=== PATIENT | female | born 1950 | race Two or more races ===

== ENCOUNTER 2019-09-29 21:04 | Emergency (ER) | payer OTHER ==
[2019-09-29] MEDS ORDERED: Sodium Chloride 0.9% 10 ML Syringe FLUSH PRN (21:31)
--- NOTE | 2019-09-29 21:55 | EDM.PDOC ---
ED HPI GENERAL MEDICAL PROBLEM - General Chief Complaint: Gastrointestinal Problem Stated Complaint: BLOOD IN THE TOILET Time Seen by Provider: 09/29/19 21:40 Source of Information: Reports: Patient History Limitations: Reports: Other (limited old records available) - History of Present Illness INITIAL COMMENTS - FREE TEXT/NARRATIVE: 69 yo female [place] patient presents after passage of blood per rectum this evening that was painless. Has no hx of the same. No abdominal pain or vomiting. Is not on any anticoagulants other than ASA. Not dizzy with standing now. Had colonoscopy and believes that there was no problems identified(within the past 5 yrs). Passing more gas than usual. Called the [facility] and was told to come to our ER. Apparently, had a little bit of bleeding starting as early as last evening. 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 [Unable to Verify Home Med List] 09/29/19 [History] Past Medical History - Past Surgical History Musculoskeletal Surgical History: Reports: Knee Replacement Social & Family History - Tobacco Use Smoking Status *Q: Never Smoker ED ROS GENERAL - Review of Systems Review Of Systems: See Below Constitutional: Reports: No Symptoms HEENT: Reports: No Symptoms Respiratory: Reports: No Symptoms Cardiovascular: Reports: No Symptoms Endocrine: Reports: No Symptoms GI/Abdominal: Reports: Abdominal Pain (some mild cramps), Bloody Stool, Diarrhea (mostly blood), Flatus. Denies: Black Stool, Distension, Hematemesis, Nausea, Vomiting : Reports: No Symptoms Musculoskeletal: Reports: No Symptoms Skin: Reports: No Symptoms Neurological: Reports: No Symptoms Psychiatric: Reports: No Symptoms ED EXAM, GI/ABD - Physical Exam Exam: See Below Exam Limited By: No Limitations General Appearance: Alert, WD/WN, No Apparent Distress, Obese Eyes: Bilateral: Normal Appearance Ears: Normal External Exam, Normal Canal, Hearing Grossly Normal, Normal TMs Nose: Normal Inspection, No Blood Throat/Mouth: Normal Inspection, Normal Lips, Normal Oropharynx, Normal Voice, No Airway Compromise Head: Atraumatic, Normocephalic Neck: Normal Inspection Respiratory/Chest: No Respiratory Distress, Lungs Clear, Normal Breath Sounds, No Accessory Muscle Use Cardiovascular: Regular Rate, Rhythm, No Edema, Tachycardia GI/Abdominal Exam: Normal Bowel Sounds, Soft, Non-Tender, No Distention, Abnormal Bowel Sounds (increased). No: Distended, Guarding, Rigid, Rebound, Tender, Hernia Back Exam: Normal Inspection. No: CVA Tenderness (R), CVA Tenderness (L) Extremities: Normal Inspection, Normal Range of Motion, Non-Tender, No Pedal Edema Neurological: Alert, Oriented, CN II-XII Intact, Normal Cognition, No Motor/ Sensory Deficits Psychiatric: Normal Affect, Normal Mood Skin Exam: Warm, Dry, Intact, Normal Color, No Rash Course - Vital Signs Text/Narrative:: Discussed with the [facility] @ 2210h Is declining the offer of an ambulance. Sons to drive her to [facility]. Will saline lock her IV. Last Recorded V/S: Last Vital Signs Temp 35.9 C 09/29/19 21:40 Pulse 111 H 09/29/19 21:40 Resp 18 09/29/19 21:40 BP 167/113 H 09/29/19 21:40 Pulse Ox 97 09/29/19 21:40 - Orders/Labs/Meds Orders: Active Orders 24 hr Category Date Time Status PATIENT RETYPE [BBK] Stat Lab 09/29/19 21:31 Results TYPE AND SCREEN [BBK] Stat Lab 09/29/19 21:31 Results Lactated Ringers [Ringers, Lactated] 1,000 ml Med 09/29/19 22:15 Active IV ASDIRECTED Sodium Chloride 0.9% [Saline Flush] Med 09/29/19 21:31 Active 10 ml FLUSH ASDIRECTED PRN Saline Lock Insert [OM.PC] Routine Oth 09/29/19 21:31 Ordered Medication Orders Lactated Ringer's (Ringers, Lactated) 1,000 mls @ 250 mls/hr IV ASDIRECTED CHRISTIAN Last Admin: 09/29/19 22:52 Dose: 250 mls/hr Sodium Chloride (Saline Flush) 10 ml FLUSH ASDIRECTED PRN PRN Reason: Keep Vein Open Last Admin: 09/29/19 22:52 Dose: 10 ml Labs: Laboratory Tests 09/29/19 09/29/19 09/29/19 Range/Units 21:31 21:46 21:46 WBC 7.9 (4.5-11.0) K/uL RBC 4.40 (3.30-5.50) M/uL Hgb 12.6 (12.0-15.0) g/dL Hct 39.7 (36.0-48.0) % MCV 90 (80-98) fL MCH 29 (27-31) pg MCHC 32 (32-36) % Plt Count 354 (150-400) K/uL Sodium 141 (140-148) mmol/L Potassium 4.3 (3.6-5.2) mmol/L Chloride 108 (100-108) mmol/L Carbon Dioxide 23 (21-32) mmol/L Anion Gap 10.2 (5.0-14.0) mmol/L BUN 25 H (7-18) mg/dL Creatinine 1.3 H (0.6-1.0) mg/dL Est Cr Clr Drug Dosing 35.27 mL/min Estimated GFR (MDRD) 41 L (>60) Glucose 108 H (74-106) mg/dL Calcium 9.1 (8.5-10.1) mg/dL Blood Type O POSITIVE Gel Antibody Screen Negative Meds: Medications Generic Name Dose Route Start Last Admin Trade Name Judy PRN Reason Stop Dose Admin Lactated Ringer's 1,000 mls @ 250 mls/hr 09/29/19 22:15 09/29/19 22:52 Ringers, Lactated IV 250 mls/hr ASDIRECTED CHRISTIAN Administration Sodium Chloride 10 ml 09/29/19 21:31 09/29/19 22:52 Saline Flush FLUSH 10 ml ASDIRECTED PRN Administration Keep Vein Open Discontinued Medications Generic Name Dose Route Start Last Admin Trade Name Freq PRN Reason Stop Dose Admin Clonidine HCl 0.2 mg 09/29/19 22:12 Catapres PO 09/29/19 22:13 ONETIME ONE Pantoprazole Sodium 40 mg 09/29/19 23:03 09/29/19 23:17 Protonix Iv IVPUSH 09/29/19 23:04 40 mg ONETIME ONE Administration - Radiology Interpretation Free Text/Narrative:: 2 view abd X-ray- IMPRESSION: 1. Unremarkable appearance of the visualized abdomen. Dictated by Warner Demarco MD @ 09/29/2019 10:47:05 PM Dictated by: Warner Demarco MD @ 09/29/2019 22:47:08 Departure - Departure Time of Disposition: 23:45 Disposition: DC/Tfer to Acute Hospital 02 Condition: Fair Clinical Impression: Rectal bleeding, Diverticular hemorrhage - Discharge Information *PRESCRIPTION DRUG MONITORING PROGRAM REVIEWED*: No *COPY OF PRESCRIPTION DRUG MONITORING REPORT IN PATIENT OFE: No Instructions: Rectal Bleeding, [id number] Referrals: PCP,None [Primary Care Provider] - Forms: ED Department Discharge Sepsis Event Note - Evaluation Sepsis Screening Result: No Definite Risk - Focused Exam Vital Signs: Vital Signs Temp Pulse Resp BP Pulse Ox 09/29/19 21:40 35.9 C 111 H 18 167/113 H 97 09/29/19 21:17 35.9 C 111 H 18 167/113 H 97 Date Exam was Performed: 09/29/19 Time Exam was Performed: 23:36 - My Orders Last 24 Hours: My Active Orders 09/29/19 21:31 PATIENT RETYPE [BBK] Stat TYPE AND SCREEN [BBK] Stat Sodium Chloride 0.9% [Saline Flush] 10 ml FLUSH ASDIRECTED PRN Saline Lock Insert [OM.PC] Routine 09/29/19 22:15 Lactated Ringers [Ringers, Lactated] 1,000 ml IV ASDIRECTED - Assessment/Plan Last 24 Hours: My Active Orders 09/29/19 21:31 PATIENT RETYPE [BBK] Stat TYPE AND SCREEN [BBK] Stat Sodium Chloride 0.9% [Saline Flush] 10 ml FLUSH ASDIRECTED PRN Saline Lock Insert [OM.PC] Routine 09/29/19 22:15 Lactated Ringers [Ringers, Lactated] 1,000 ml IV ASDIRECTED
[2019-09-29] MEDS ORDERED: cloNIDine 0.1 MG Tab PO ONE (22:12)
[2019-09-29] MEDS ORDERED: Lactated Ringers 1,000 ML IV SCH (22:15)
--- NOTE | 2019-09-29 22:49 | CRLCR ---
INDICATION: Rectal bleeding TECHNIQUE: Abdomen/Pelvis radiograph 4 views COMPARISON: None FINDINGS: Severe degradation of image quality noted due to body habitus. Bowel: Nonspecific small scattered air-fluid levels are present throughout the abdomen. Mild gaseous distention of the colon is seen. Soft tissue: No evidence of pneumoperitoneum present. No suspicious calcifications noted. Bone: Unremarkable for age. IMPRESSION: 1. Unremarkable appearance of the visualized abdomen. Dictated by Warner Demarco MD @ 09/29/2019 10:47:05 PM Dictated by: Warner Demarco MD @ 09/29/2019 22:47:08 (Electronically Signed)
[2019-09-29] MEDS ORDERED: Pantoprazole 40 MG Vial IVPUSH ONE (23:03)
== END 2019-09-29 23:55 ==
LOC: JP.ED 21:04
DX: K62.5 Hemorrhage of anus and rectum (principal); K57.91 Diverticulosis of intestine, part unspecified, without perforation or abscess with bleeding
CPT/HCPCS: 36415; 74019; 80048; 85027; 86850; 86900; 86901; 96361; 96374; 99284; 99285; C9113; J7120

== ENCOUNTER 2023-04-30 08:47 | Emergency (ER) | payer OTHER ==
[2023-04-30] MEDS ORDERED: Ketorolac 30 MG/ML SDV IM ONE (09:33)
== END 2023-04-30 11:52 | disposition home or self-care (01) ==
LOC: JP.ED 08:47
DX: S30.0XXA Contusion of lower back and pelvis, initial encounter (principal); I10 Essential (primary) hypertension; E66.9 Obesity, unspecified; Z68.42 Body mass index [BMI] 45.0-49.9, adult; Z88.8 Allergy status to other drugs, medicaments and biological substances; X58.XXXA Exposure to other specified factors, initial encounter
CPT/HCPCS: 72192; 73502; 96372; 99284; J1885; 99283